=== PATIENT | female | born 1945 | race Caucasian/White ===

== ENCOUNTER 2017-10-30 11:43 | Emergency (ER) | payer MEDICARE, BC ==
--- NOTE | 2017-10-30 13:11 | RAD ---
INDICATION: Lower right chest pain after "bending into chest freezer" COMPARISON: None TECHNIQUE: PA and lateral views of the chest were obtained. FINDINGS: The heart and mediastinum are normal in size and contour. The lungs are grossly clear. There is no evidence of large pleural effusion. Visualized bones are normal for the patient's age. There is no radiographic evidence of free air beneath the diaphragm IMPRESSION: No radiographic evidence of acute cardiopulmonary disease.
[2017-10-30 14:04] VITALS: BP 145/85
--- NOTE | 2017-10-30 17:11 | ED ---
Vika Shore Julia, scribed for Parviz Deleon MD on 10/30/17 at 1248 . Complex/Multi-Sys Presentation - HPI Summary HPI Summary: This patient is a 72 year old F presenting to [facility] with a chief complaint of sharp R lower anterior rib pain, unchanged, since 21:00 on 10/27/17. The patient rates the pain 7/10 in severity. Symptoms aggravated by movement and breathing. Symptoms alleviated by certain positions. - History Of Current Complaint Chief Complaint: EDChestWallPain Time Seen by Provider: 10/30/17 12:10 Hx Obtained From: Patient Onset/Duration: Sudden Onset Timing: Constant Severity Currently: Moderate Severity Initially: Moderate Location: Pain At: - R lower anterior chest Character: Sharp Aggravating Factor(s): movement and breahting Alleviating Factor(s): certain positions - Allergies/Home Medications Allergies/Adverse Reactions: Allergies Allergy/AdvReac Type Severity Reaction Status Date / Time Aspirin Allergy Shortness Verified 04/16/15 06:16 of Breath Ibuprofen Allergy Difficulty Verified 04/16/15 06:16 Breathing PMH/Surg Hx/FS Hx/Imm Hx Endocrine/Hematology History: Denies: Hx Diabetes, Hx Systemic Lupus Erythematosus Cardiovascular History: Reports: Hx Peripheral Vascular Disease - HOSPITALIZED WITH BLOOD CLOTS ONE IN LEG AND ONE THRU LUNG Denies: Hx Congestive Heart Failure, Hx Hypertension Respiratory History: Reports: Hx Asthma - NO MEDS, NO PROBLEMS IN YEARS, Hx Pulmonary Embolism GI History: Reports: Other GI Disorders - HX OF SPASTIC COLON OVER 20 YEARS AGO History: Reports: Hx Kidney Stones - LEFT STONE AND STENT INSERTION 04-05-15, Other Problems/Disorders - HAD NEPHRITIS, NO PROBLEMS SINCE Denies: Hx Dialysis, Hx Renal Disease Musculoskeletal History: Reports: Hx Arthritis - LOWER BACK Denies: Hx Rheumatoid Arthritis Sensory History: Reports: Hx Cataracts, Hx Contacts or Glasses - READING GLASSES Denies: Hx Hearing Aid Opthamlomology History: Reports: Hx Cataracts, Hx Contacts or Glasses - READING GLASSES - Cancer History Cancer Type, Location and Year: melanoma Hx Chemotherapy: No Hx Radiation Therapy: No - Surgical History Surgery Procedure, Year, and Place: 2002 [place] [facility] [place] [facility] [place] CONE BIOPSIES, [facility] [place]. MELANOMA RIGHT BACK/SHOULDER, [facility] [place] VOCAL NODULES EXCISED, (X2) [facility] [place] 04/05/2015 CYSTOSCOPY WITH LEFT URETERAL STENT INSERTION, [facility] Hx Anesthesia Reactions: Yes - CONE BIOPSY-WAS GIVEN TOO MUCH, UNABLE TO WALK TIL NEXT DAY Infectious Disease History: No Infectious Disease History: Denies: Traveled Outside the [place] in Last 30 Days - Family History Known Family History: Positive: Cardiac Disease - Social History Alcohol Use: None Hx Substance Use: No Substance Use Type: Reports: None Hx Tobacco Use: Yes Smoking Status (MU): Current Every Day Smoker Type: Cigarettes Amount Used/How Often: 15 CIGS. PER DAY Length of Time of Smoking/Using Tobacco: SINCE 1961 Have You Smoked in the Last Year: Yes Review of Systems Negative: Fever Positive: Other - R anterior lower rib pain All Other Systems Reviewed And Are Negative: Yes Physical Exam - Summary Physical Exam Summary: Appearance: The patient is well-nourished in no acute distress and in no acute pain. Skin: The skin is warm and dry and skin color reflects adequate perfusion. HEENT: The head is normocephalic and atraumatic. The pupils are equal and reactive. The conjunctivae are clear and without drainage. Nares are patent and without drainage. Mouth reveals moist mucous membranes and the throat is without erythema and exudate. The external ears are intact. The ear canals are patent and without drainage. The tympanic membranes are intact. Neck: the neck is supple with full range of motion and non-tender. There are no carotid bruits. There is no neck vein distension. Respiratory: Chest is non-tender. Lungs are clear to auscultation and breath sounds are symmetrical and equal. Cardiovascular: Heart is regular rate and rhythm. There is no murmur or rub auscultated. There is no peripheral edema and pulses are symmetrical and equal. Abdomen: The abdomen is soft and non-tender. There are normal bowel sounds heard in all four quadrants and there is no organomegaly palpated. Musculoskeletal: There is no back tenderness noted. Extremities are non-tender with full range of motion. There is good capillary refill. There is no peripheral edema or calf tenderness elicited. There is R anterior lower chest tenderness. Neurological: Patient is alert and oriented to person, place and time. The patient has symmetrical motor strength in all four extremities. Cranial nerves are grossly intact. Deep tendon reflexes are symmetrical and equal in all four extremities. Psychiatric: The patient has an appropriate affect and does not exhibit any anxiety or depression. Triage Information Reviewed: Yes Vital Signs On Initial Exam: Initial Vitals Temp Pulse Resp BP Pulse Ox 97.1 F 80 20 162/90 97 10/30/17 11:46 10/30/17 11:46 10/30/17 11:46 10/30/17 11:46 10/30/17 11:46 Vital Signs Reviewed: Yes - Aden Coma Scale Coma Scale Total: 15 Diagnostics - Vital Signs Vital Signs Temp Pulse Resp BP Pulse Ox 10/30/17 11:46 97.1 F 80 20 162/90 97 - Laboratory Lab Statement: Any lab studies that have been ordered have been reviewed, and results considered in the medical decision making process. - Radiology CXR Radiology Interpretation Completed By: Radiologist - No radiographic evidence of acute cardiopulmonary disease. The ED physician has reviewed this report. Complex Multi-Symp Course/Dx Course Of Treatment: Ms. Fisher was bending over reaching into a freezer with her right anterior chest resting against the edge 3 days ago when she fell a sudden, sharp pain which had gradually worsened since. Any movement including breaths hurts. A plain CXR was negative and, although she may still have a nondisplaced fracture, I will treat her for rib injury with pain control. She is unable to take NSAIDS. - Diagnoses Provider Diagnoses: Chest wall contusion Discharge - Discharge Plan Condition: Stable Disposition: HOME Prescriptions: HYDROcodone/ACETAMIN 5-325 MG* [Buras 5-325 TAB*] 1 tab PO Q6H PRN #20 tab MDD 4 PRN Reason: Pain Patient Education Materials: Rib Contusion (ED) Referrals: Zach Mayers MD [Primary Care Provider] - Additional Instructions: RETURN TO THE EMERGENCY DEPARTMENT FOR CHANGING OR WORSENING SYMPTOMS The documentation as recorded by the Vika clayton Julia accurately reflects the service I personally performed and the decisions made by , Parviz Deleon MD.
== END 2017-10-30 13:45 | disposition home or self-care (01) ==
LOC: ED 11:43
DX: S20.211A Contusion of right front wall of thorax, initial encounter (principal); X50.9XXA Other and unspecified overexertion or strenuous movements or postures, initial encounter; Y93.9 Activity, unspecified; Y92.9 Unspecified place or not applicable; F17.210 Nicotine dependence, cigarettes, uncomplicated
CPT/HCPCS: 71020; 99282